=== PATIENT | female | born 1995 | race Caucasian/White ===

== ENCOUNTER 2023-08-23 06:15 | Day surgery (SDC) | payer BC, SELFPAY ==
[2023-08-23] VITALS (16 sets, daily range): BP systolic 93–124; BP diastolic 63–98; PULSE 60–79; RESP 16–18; TEMP 36.3–37.2; O2SAT 97–100; BMI 29.2
[2023-08-23] MEDS: fentaNYL 100 MCG/2 ML inj IVP (06:05)
[2023-08-23] MEDS: LACTATED RINGERS 1000 ML 1,000 ML 100 ML IV ×2 (06:05→09:07)
[2023-08-23] MEDS: MIDAZOLAM HCL 1 MG/ML inj IVP (06:05)
[2023-08-23] MEDS: SODIUM CHLORIDE 0.9 % (FLUSH) 10 ML SYRINGE IVF (07:05)
--- NOTE | 2023-08-23 07:06 | SUR.PREOP ---
Pt had ucg done a few days ago which was negative pt having her menses now so refused hcg here
--- NOTE | 2023-08-23 07:21 | P.ORPRC_ITS ---
Procedure Note Date of procedure: 08/23/23 Procedure: PREOPERATIVE DIAGNOSES: 1. Right ankle lateral malleolus fracture (with bimalleolar equivalent) - unstable on stress imaging POSTOPERATIVE DIAGNOSES: 1. Right ankle lateral malleolus fracture PROCEDURE: 1. Right ankle lateral malleolus open reduction with internal fixation. 2. Intraoperative fluoroscopy <53 minutes (CPT CODE 7600) SURGEON: Ronaldo Roy MD [employer] SUPERVISOR: Rhiannon Nunez P.A.-C.; An desk assistant was critical for this case to aide in patient positioning, leg manipulation, tissue retraction, closure, and splinting. ANESTHESIA: Spinal plus popliteal block COMPLICATIONS: None IMPLANTS: Arthrex 7 hole 1/3 tubular plate with 3.5 mm proximal nonlocking screws, 3.5 mm distal nonlocking screws, 4-0 cancellous screw, and a 3.0 mm lag screw TOURNIQUET: 54 minutes at 250 mmHg INDICATIONS: The patient is a pleasant 28-year-old female who sustained a right ankle injury in the recent past with difficulty bearing weight. Workup included x-rays which revealed an unstable ankle fracture. Given these findings, surgery was recommended to stablize the ankle and allow for anatomic healing. FINDINGS: Closed, displaced lateral malleolus ankle fracture with a bimalleolar equivalent; intact syndesmosis. PROCEDURE: Following a thorough discussion of risks, benefits, and alternatives, consent was obtained and the operative extremity was marked. Regional blocks were performed by anesthesia staff. The patient was brought to the operating room and in spinal anesthesia was obtained. Patient was then placed into the supine position on the operating table. 1 g IV Ancef was administered within 1 hour of incision preoperatively. The right lower extremity was prepped and draped in the appropriate sterile fashion using ChloraPrep prep. Surgical time-out was performed confirming patient identity, surgical site, and surgical procedure. The operative extremity was elevated and exsanguinated, and the tourniquet inflated to 250 mmHg. A longitudinal incision was made overlying the posterior border of the distal fibula. Sharp incision was carried through skin and subcutaneous tissue, while protecting any crossing neurologic structures. The fracture was identified, and cleared of interposed periosteum and fracture hematoma. The surgical site was thoroughly irrigated with normal saline. The fracture was reduced and temporarily held with reduction clamps. 3.0 mm lag screw was placed across the fracture site. A 1/3 tubular plate was then contoured to fit along the lateral aspect of the distal fibula. It was held provisionally with BB tacks. Fluoroscopic imaging was then used to confirm anatomic reduction of the fracture correct positioning of the plate. Plate was then secured distally with a combination of 3.5 mm locking screws and a 4.0 mm cancellous screws. It was fixed proximally with 3.5 mm nonlocking screws. Final fluoroscopic imaging was used to confirm anatomic reduction of the fracture, correct screw length and plate position in AP and lateral planes. External rotation stress was applied, which confirmed an intact syndesmosis. At this stage, the wound was thoroughly irrigated with normal saline. Deep subcutaenous tissues were closed over the plate with 2-0 Vicryl. The tourniquet was deflated. Total tourniquet time was 54 minutes. Hemostasis achieved with electrocautery. Subcutaneous tissues were closed with 3-0 Vicryl for the subcutaneous tissues, and 4-0 stratafix for subcuticular layers completed the closure. Dermabond was applied, dressings were applied followed by the application of a David Garcia splint. The patient was awoken from anesthesia and transferred to the PACU in stable condition. PLAN: 1. Ice and elevate operative extremity. 2. Keep splint clean and dry 3. Tylenol and oxycodone for pain as needed. 4. Toe-touch weight-bearing operative extremity 5. Discharge home today 6. Follow up in orthopedic clinic in 10-14 days for splint removal and wound check. -convert to Cam boot and advance weight-bearing as tolerated. -initiate formal physical therapy after 1st postoperative visit.
--- NOTE | 2023-08-23 07:21 | W.PM.H&PU ---
History & Physical Update History & Physical Update H&P Reviewed and patient assessed: No changes noted
--- NOTE | 2023-08-23 07:30 | CRLHL7_ITS ---
For Patients: As a result of the Cures Act, medical imaging exams and procedure reports are released immediately into your electronic medical record. You may view this report before your referring provider. If you have questions, please contact your health care provider. INDICATION: Distal fibular fracture ORIF TECHNIQUE: Distal fibular fracture ORIF performed by Dr. Roy. Three C-arm spot images were obtained. Fluoroscopy time was 23.3 seconds. COMPARISON: None. FINDINGS: C-arm fluoroscopy for distal fibular fracture ORIF. Hardware and fracture fragments good alignment. IMPRESSION: C-arm fluoroscopy for distal fibular fracture ORIF. Dictated by Jerel Leon MD @ 08/23/2023 3:11:52 PM (Electronically Signed)
--- NOTE | 2023-08-23 07:41 | SUR.PREOP ---
TIME?OUT:?6830 PT/RN/MDA?VERIFICATION?OF?SURGICAL?SITE,?PROCEDURE,?AND?CONSENT OBTAINED?PRIOR?TO?INVASIVE?PROCEDURE.right ankle
[2023-08-23] MEDS: CEFAZOLIN 2 GM INJ IVP (07:53)
--- NOTE | 2023-08-23 09:57 | W.ANESCHARGE ---
Anesthesia Charges Start Date/Time Anesthesia Start Date: 08/23/23 Anesthesia Start Time: 07:40 Stop Date/Time Anesthesia Stop Date: 08/23/23 Anesthesia Stop Time: 09:52
--- NOTE | 2023-08-23 10:09 | W.ANESCHARGE ---
Anesthesia Charges Start Date/Time Anesthesia Start Date: 08/23/23 Anesthesia Start Time: 07:40 Stop Date/Time Anesthesia Stop Date: 08/23/23 Anesthesia Stop Time: 09:52
--- NOTE | 2023-08-23 10:09 | W.PM.NB ---
Nerve Block Nerve Block Time Seen by Provider: 07:30 Date Seen: 08/23/23 Type of block requested by surgeon for post-operative analgesia: popliteal Side: right Time out performed: Yes Verification of patient name: Yes Verification of date of : Yes Site marking: site marked Name of person performing procedure: Bill Continuous monitoring Was continuous monitoring of O2 sat, B/P, night monitor, recorded every 15 minutes?: Yes Procedure Checklist: sterile prep, needles and gloves Ultrasound guided. Images saved: Yes Medications given in 5ml increments after negative aspiration: Ropivicaine %: 0.5 mL: 20 Needle gauge: 22 Patient tolerated procedure well: Yes Additional comments: Needle noted adjacent to nerve Block Charges Block Charge (with Pro Fee): Sciatic Nerve Use of Ultrasound Machine for Block: Yes- US Guidance/pain block
--- NOTE | 2023-08-23 10:09 | W.PM.NB ---
Nerve Block Nerve Block Time Seen by Provider: 07:30 Date Seen: 08/23/23 Type of block requested by surgeon for post-operative analgesia: adductor canal Side: right Time out performed: Yes Verification of patient name: Yes Verification of date of : Yes Site marking: site marked Name of person performing procedure: Bill Continuous monitoring Was continuous monitoring of O2 sat, B/P, manager cardiac cath, recorded every 15 minutes?: Yes Procedure Checklist: sterile prep, needles and gloves Ultrasound guided. Images saved: Yes Medications given in 5ml increments after negative aspiration: Ropivicaine %: 0.5 mL: 20 Needle gauge: 20 Patient tolerated procedure well: Yes Additional comments: Needle noted adjacent to nerve Block Charges Block Charge (with Pro Fee): Femoral Nerve Use of Ultrasound Machine for Block: Yes- US Guidance/pain block
--- NOTE | 2023-08-23 11:55 | SUR.PHASEII ---
Pt up with Assist to recliner with walker and 2 RNS legs a bit weak yet will allow to rest longer for legs to wake up
--- NOTE | 2023-08-23 12:01 | SUR.PREOP ---
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
--- NOTE | 2023-08-23 12:06 | SUR.PREOP ---
Pt became a little nauseated v.s.s reclined back in recliner quease [place] given to pt cool wash cloth behind neck and on forehead pt feeling a little better
--- NOTE | 2023-08-23 12:20 | SUR.PHASEII ---
nausea better legs strong pt d/c to home
== END 2023-08-23 12:21 | disposition home or self-care (01) ==
PROVIDERS: PCP Physician Assistant Medical; Visit Provider Orthopaedic Surgery
PROC: (CPT 27792; principal; 2023-08-23 07:30)
DX: S82.61XA Displaced fracture of lateral malleolus of right fibula, initial encounter for closed fracture (principal); G89.18 Other acute postprocedural pain
CPT/HCPCS: 27792; 01480; 64445; 64447; 73600; 76000; 76942; 81025; C1713; J0690; J1100; J2250; J2405; J2704; J2795; J3010; J7120

== ENCOUNTER 2023-12-05 16:00 | Outpatient (RCR) | payer BC, SELFPAY ==
--- NOTE | 2023-08-21 17:37 | OT.OPOE ---
OT Outpatient Ortho Eval OT Outpatient Ortho Eval* Start: 06/13/23 17:29 Freq: Status: Active Protocol: Document 06/14/23 13:52 AMB (Rec: 06/14/23 15:33 AMB [id number]) E-signed By Eulalia Braun, OTR/L, CLT, PROFESSOR OF FOOD BIOCHEMISTRY OT OP Ortho Eval Details Complexity Complexity Low Insurance Information Insurance Information [employer] Outpatient History/Precautions Current Condition/Medical Diagnosis Referring Provider Dr Bailey Treatment Diagnosis RUE DeQuervain's tenosynovitis , weakness, pain, limited ROM Date of Onset Chronic Other Precautions Preferred language is ASL, need interpretor Other Conditions Deaf, allergy to Augmentin. Medical/Functional History Medical History Reviewed Yes Prior Level of Function/Mobility Prior to onset of RUE deQuervain's tenosynovitis, pt had full, pain-free use of her RUE. Social History Current Occupation [employer] Other Other [employer] Job [employer] ASL Hobbies Has a dog Fitness Exercises regularly Ortho Subjective Subjective Subjective Pt states she's been having terrible pain in her RUE wrist since last September following an intense gym workout. She does not recall a specific injury, just that she was doing a lot of lifting with heavy weights. Pt states she had to put of treatment for a while as she did not have insurance. Pt saw Dr Bailey yesterday and was given a steroid injection, pt has not noticed improvement yet, hopeful that it will help. Pt states she really is not using any ice or NSAIDs.. Pt has significant increased pain /difficulty with pushing, sleeping, lifting, pulling, gripping, opening containers and signing. Pt is deaf and works at the [employer], has to be able to sign most of the day at work. Pt states she has constant pain, average of 8/10, throbs, occasional sharp , shooting pain. Pain Assessment Pain Present Pain Present Pain Reported Goniometric Comments Goniometric Comments Goniometric Comments 06/14/23 Pt demonstrates AROM and strength WNL throughout BUE with the exception of the RUE wrist and thumb. AROM of the RUE wrist flexion is 70, ext is 50, UD is 20, and RD is 10. AROM of the RUE thumb radial abd is 40, palmar abd is 40, IP is WNL. All AROM motions of the RUE wrist and thumb are painful, specific strength testing of the hand is deferred secondary to pain. Hand Pinch/Inside Sales Executive Strength Hand Right Inside Sales Executive Strength Position 1 (lbs) 25 Lateral Pinch Strength (lbs) 10 Three Point Pinch (lbs) 10 Left Inside Sales Executive Strength Position 1 (lbs) 60 Lateral Pinch Strength (lbs) 14 Three Point Pinch (lbs) 12 Comments Comments 06/14/23 Pt has increased pain with comber operator and pinch strength testing. OT Objective Data Hand Hand Dominance Right Observations/Posture/Limb Appearance Objective Observations 06/14/23 Mild swelling is appreciated at the RUE radial wrist / anatomical snuff box. Upper Extremity Special Tests Tenosynovitis Wrist Finklestein Test Positive Right Upper Extremity Special Tests Comments Comments 06/14/23 Rosemary's is (+) at 5 deg of UD, very painful OT Problems Problems Problems Decreased Strength,Decreased Range of Motion,Decreased Dexterity,Pain,Lifting, Gripping,Pinching Problems Comments Difficulty with communication / ASL Other Problems Writing,Opening Containers, Computer Patient Potential Good Assessment Assessment Assessment Pt presents to OT with orders for evaluation and treatment of RUE radial wrist pain / deQuervain's tenosynovitis. Provocative testing supports stated diagnosis. Pt has pain, limited ROM and weakness in the RUE which impairs her ability to use her RUE for ADLs and IADLs that require gripping, pinching, or twisting of the RUE. Occasionally, pt has trouble with sleep as well. Pt will benefit from skilled OT intervention to address impairments / pain in order to restore full, pain-free use of her RUE. Occupational Therapy Treatment Plan - OP Potential Rehabilitation Potential Good Set Goals Goals Set with Patient Yes Goals Goals 1. Pt will be independent and compliant with HEP in order to resume full, pain-free use of the involved UE. 3 weeks 2. Pt will demonstrate full, pain-free AROM of the involved UE in order to improve ability to sign/communicate and to open containers/ grasp and hold. 6 weeks 3. Pt will be able to sleep throughout the night without being awakened due to sharp, shooting pain. 7 weeks 4. Pt will demonstrate pain- free comber operator and pinch strength comparable to the uninvolved side in order to improve functional grasp, hold, reach, and lifting ability needed to complete self-care, leisure tasks, and work activities. 8 weeks. Treatment Plan Treatment Plan Evaluation,Edema Control, Iontophoresis,Joint Mobilization,Manual Therapy, Splinting,Ultrasound, Therapeutic Exercise, Therapeutic Activities,Self Care/Home Management,Education Expected Frequency 1-2x Week Expected Duration 6-8 Weeks Home Program Home Program Home Program Initiated Home Program Specifics 06/14/23 Initiated HEP for AROM and tendon glides / mobilization for the RUE. Following demo, pt is able to complete exs with minimal cues . Pt was given written instructions for home as well. Pt was also provided with recommendations for home ice therapy and given a semi- custom wrist based thumb spica splint for immobilization / resting of the thumb and APL/ EPB Certification Certification I Certify That: Therapy Services Provided, Therapy Plan Established, Therapy Plan Reviewed
== END 2024-04-03 23:59 | disposition home or self-care (01) ==
PROVIDERS: PCP Physician Assistant Medical; Visit Provider Family Medicine
DX: M65.4 Radial styloid tenosynovitis [de Quervain] (principal); M25.531 Pain in right wrist; R53.1 Weakness; Z51.89 Encounter for other specified aftercare
CPT/HCPCS: 97033; 97035; 97110; 97116; 97140; 97161; 97165; 97530; X5282

== ENCOUNTER 2024-02-14 09:45 | Outpatient (RCR) | payer BC, SELFPAY | END 2024-02-14 12:29 | disposition home or self-care (01) | PROVIDERS: PCP Physician Assistant Medical; Visit Provider Physician Assistant Surgical | DX: Z98.890 Other specified postprocedural states (principal); Z87.81 Personal history of (healed) traumatic fracture; Z51.89 Encounter for other specified aftercare | CPT/HCPCS: 97110; 97116; 97140; 97161 ==

== ENCOUNTER 2024-12-31 13:00 | Outpatient (RCR) | payer BC, SELFPAY | END 2025-04-30 23:59 | disposition home or self-care (01) | PROVIDERS: PCP Physician Assistant Medical | DX: Z48.89 Encounter for other specified surgical aftercare (principal); M25.531 Pain in right wrist; Z51.89 Encounter for other specified aftercare | CPT/HCPCS: 97033; 97035; 97110; 97140; 97165; X5282 ==